=== PATIENT | male | born 2000 | race Caucasian/White ===

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

== ENCOUNTER 2019-01-23 17:01 | Emergency (ER) | payer OTHER ==
[~2019-01-23] VITALS: Ht 180.3 cm; Wt 188.6 kg
[2019-01-23] MEDS ORDERED: CIPROFLOXACIN HCL 250 MG TABLET PO ONE (18:15)
[2019-01-23] MEDS ORDERED: PERTUSS(ACELL),DIPH,TET VAC/PF 0.5 ML VIAL IM ONE (18:15)
[2019-01-23] MEDS ORDERED: BACITRACIN 0.9 GM PACKET OINTMENT TP ONE (18:15)
[2019-01-23] MEDS ORDERED: IBUPROFEN 600 MG TABLET PO ONE (19:00)
[2019-01-23] MEDS ORDERED: ACETAMINOPHEN 500 MG TABLET PO ONE (19:00)
[2019-01-23 19:09] VITALS: BP 144/72
== END 2019-01-23 19:17 | disposition home or self-care (01) ==
LOC: EMS 17:02
DX: S91.332A Puncture wound without foreign body, left foot, initial encounter (principal); W45.0XXA Nail entering through skin, initial encounter; Y93.89 Activity, other specified; Y92.89 Other specified places as the place of occurrence of the external cause; Y99.0 Civilian activity done for income or pay
CPT/HCPCS: 90471; 90715

== ENCOUNTER 2021-06-20 08:20 | Emergency (ER) | payer OTHER ==
[~2021-06-20] VITALS: Ht 180.3 cm; Wt 170.4 kg
[2021-06-20] MEDS ORDERED: ALBUTEROL SULFATE HFA 90 MCG/PUFF 8 GM INHALER IH ONE (08:30)
[2021-06-20 08:43] LABS: COVID AG,FIA SOURCE NASAL SWAB
[2021-06-20 10:07] VITALS: BP 158/98
== END 2021-06-20 10:16 | disposition home or self-care (01) ==
LOC: EMS 08:24
DX: J45.901 Unspecified asthma with (acute) exacerbation (principal); Z20.822 Contact with and (suspected) exposure to COVID-19
CPT/HCPCS: 71045; 94640; 99284; J3535

== ENCOUNTER 2022-03-14 22:43 | Emergency (ER) | payer OTHER ==
[~2022-03-14] VITALS: Ht 177.8 cm; Wt 159.1 kg
[2022-03-14 22:44] VITALS: BP 115/80
== END 2022-03-15 03:44 | disposition left against medical advice (07) ==
LOC: EMS 22:44
DX: J45.909 Unspecified asthma, uncomplicated (principal); Z53.21 Procedure and treatment not carried out due to patient leaving prior to being seen by health care provider

== ENCOUNTER 2022-05-26 22:50 | Emergency (ER) | payer OTHER ==
[~2022-05-26] VITALS: Ht 177.8 cm; Wt 159.0 kg
[2022-05-27] MEDS ORDERED: IPRATROPIUM BROMIDE 0.5 MG/2.5 ML NEB SOLUTION NEB ONE
[2022-05-27] MEDS ORDERED: DEXAMETHASONE 4 MG TABLET PO ONE
[2022-05-27 00:15] LABS: COVID AG,FIA SOURCE NASAL SWAB
[2022-05-27 00:43] LABS: INFLUENZA TYPE A NEGATIVE FOR TYPE A (NEGATIVE); INFLUENZA TYPE B NEGATIVE FOR TYPE B (NEGATIVE)
[2022-05-27] MEDS ORDERED: ALBUTEROL SULFATE 2.5 MG/0.5 ML NEB SOLUTION NEB ONE ×2 (03:00)
[2022-05-27 04:50] VITALS: BP 165/80
== END 2022-05-27 04:59 | disposition left against medical advice (07) ==
LOC: EMS 22:53
DX: J45.901 Unspecified asthma with (acute) exacerbation (principal); R09.02 Hypoxemia; I10 Essential (primary) hypertension; Z20.822 Contact with and (suspected) exposure to COVID-19
CPT/HCPCS: 99285; 71045; 87426; 87804; 94640; J8540; J7613

== ENCOUNTER 2022-06-01 12:55 | Emergency (ER) | payer OTHER ==
[~2022-06-01] VITALS: Ht 177.8 cm; Wt 159.1 kg
[2022-06-01 13:18] LABS: COVID AG,FIA SOURCE NASAL SWAB
[2022-06-01 14:09] LABS: INFLUENZA TYPE A NEGATIVE FOR TYPE A (NEGATIVE); INFLUENZA TYPE B NEGATIVE FOR TYPE B (NEGATIVE)
[2022-06-01] MEDS ORDERED: IPRATROPIUM BROMIDE 0.5 MG/2.5 ML NEB SOLUTION NEB ONE (14:30)
[2022-06-01] MEDS ORDERED: ALBUTEROL SULFATE 2.5 MG/0.5 ML NEB SOLUTION NEB ONE (14:30)
[2022-06-01 15:59] VITALS: BP 120/80
[2022-06-01] MEDS ORDERED: ALBU8HFA IH (15:59)
== END 2022-06-01 16:17 | disposition home or self-care (01) ==
LOC: EMS 12:56
DX: J45.901 Unspecified asthma with (acute) exacerbation (principal); I10 Essential (primary) hypertension; Z20.822 Contact with and (suspected) exposure to COVID-19
CPT/HCPCS: 71045; 87804; 93005; 94640; 99285; J7613

== ENCOUNTER 2023-10-13 10:21 | Emergency (ER) | payer MEDICAID, OTHER ==
[~2023-10-13] VITALS: Ht 177.8 cm; Wt 182.0 kg
[~2023-10-13 10:21] MED LIST: ALBU18HF12 IH
[2023-10-13 11:05] VITALS: TEMP 98.4
[2023-10-13] MEDS: PredniSONE 20 MG TABLET PO ONE (11:39)
[2023-10-13 11:52] VITALS: PULSE 80; RESP 12; O2SAT 99
[2023-10-13] MEDS: ALBUTEROL SULFATE 2.5 MG/0.5 ML NEB SOLUTION NEB ONE ×2 (11:52→12:59)
[2023-10-13] MEDS: IPRATROPIUM BROMIDE 0.5 MG/2.5 ML NEB SOLUTION NEB ONE ×2 (11:52→12:59)
[2023-10-13 12:00] VITALS: PULSE 91; RESP 20; O2SAT 97
[2023-10-13 13:00] VITALS: PULSE 89; RESP 23; O2SAT 93
[2023-10-13] MEDS: ALBUTEROL SULFATE HFA 90 MCG/PUFF 8 GM INHALER IH ONE (13:02)
[2023-10-13 13:03] VITALS: PULSE 89; RESP 20; O2SAT 99
[2023-10-13] MEDS ORDERED: ALBU18HF12 IH (13:26)
[2023-10-13] MEDS ORDERED: PRED-554 PO (13:26)
[2023-10-13 14:20] VITALS: BP 148/79; PULSE 74; RESP 20
== END 2023-10-13 14:37 | disposition home or self-care (01) ==
LOC: EMS 10:21
DX: J45.901 Unspecified asthma with (acute) exacerbation (principal); I10 Essential (primary) hypertension
CPT/HCPCS: 99284; 94640; J7512; J3535

== ENCOUNTER 2024-02-10 16:42 | Emergency (ER) | payer MEDICAID, OTHER ==
[~2024-02-10] VITALS: Ht 177.8 cm; Wt 159.0 kg
[~2024-02-10 16:42] MED LIST changes: +PRED-554 PO
[2024-02-10 17:33] VITALS: TEMP 97.1
[2024-02-10] MEDS: DEXAMETHASONE 4 MG TABLET PO ONE (19:58)
[2024-02-10 21:14] VITALS: PULSE 66; RESP 20; O2SAT 92
[2024-02-10] MEDS: IPRATROPIUM BROMIDE 0.5 MG/2.5 ML NEB SOLUTION NEB ONE (21:16)
[2024-02-10] MEDS: ALBUTEROL SULFATE 2.5 MG/0.5 ML NEB SOLUTION NEB ONE (21:16)
[2024-02-10 21:20] VITALS: PULSE 66; RESP 20; O2SAT 92
[2024-02-10 21:25] VITALS: PULSE 70; RESP 20; O2SAT 98
[2024-02-10] MEDS ORDERED: ALBU18HF12 IH (21:55)
[2024-02-10 22:31] VITALS: BP 132/92; PULSE 72; RESP 20; O2SAT 99
== END 2024-02-10 23:14 | disposition home or self-care (01) ==
LOC: EMS 16:42
DX: J45.909 Unspecified asthma, uncomplicated (principal); I10 Essential (primary) hypertension
CPT/HCPCS: 99285; 94640; J8540; 94060; J7613; Z7502

== ENCOUNTER 2024-03-06 09:11 | Emergency (ER) | payer OTHER ==
[~2024-03-06] VITALS: Ht 177.8 cm; Wt 168.2 kg
[~2024-03-06 09:11] MED LIST changes: -PRED-554 PO
[2024-03-06 09:20] VITALS: TEMP 98.5
[2024-03-06] MEDS: LIDOCAINE 1% 10 ML VIAL SQ ONE (09:51)
[2024-03-06] MEDS: CEPHALEXIN MONOHYDRATE 500 MG CAPSULE PO ONE (09:51)
[2024-03-06] MEDS: BACITRACIN 0.9 GM PACKET OINTMENT TP ONE (09:51)
[2024-03-06] MEDS: SULFAMETHOX/TRIMETH DS 800-160 MG/TABLET PO ONE (09:51)
[2024-03-06] MEDS ORDERED: SULF-261 PO (10:32)
[2024-03-06] MEDS ORDERED: CEPH-558 PO (10:32)
[2024-03-06 11:12] VITALS: BP 131/79; PULSE 78; RESP 20; O2SAT 98
== END 2024-03-06 11:14 | disposition home or self-care (01) ==
LOC: EMS 09:11
DX: L05.01 Pilonidal cyst with abscess (principal); I10 Essential (primary) hypertension; J45.909 Unspecified asthma, uncomplicated
CPT/HCPCS: 10080; 99283; J3490; 10060

== ENCOUNTER 2024-04-02 15:25 | Emergency (ER) | payer SELFPAY ==
[~2024-04-02] VITALS: Ht 177.8 cm; Wt 168.0 kg
[~2024-04-02 15:25] MED LIST changes: +CEPH-558 PO; +SULF-261 PO
[2024-04-02 15:32] VITALS: TEMP 98.3
[2024-04-02] MEDS ORDERED: ASPIRIN 81 MG CHEWABLE TABLET PO ONE (16:00)
[2024-04-02] MEDS ORDERED: HEPARIN SODIUM,PORCINE 5,000 UNITS/ML VIAL IVP ONE (16:00)
[2024-04-02] MEDS ORDERED: ATORVASTATIN CALCIUM 40 MG TABLET PO ONE (16:00)
[2024-04-02] MEDS ORDERED: ALBU18HF12 IH (16:39)
[2024-04-02] MEDS ORDERED: METH4TAB3 PO (16:39)
[2024-04-02] MEDS ORDERED: AZIT250T9 PO (16:39)
[2024-04-02] MEDS: DEXAMETHASONE SOD PHOS 4 MG/ML 5 ML VIAL IM ONE (17:08)
[2024-04-02] MEDS ORDERED: 0.9% SODIUM CHLORIDE 5 ML NEB SOLUTION NEB ONE (17:36)
[2024-04-02] MEDS: ALBUTEROL SULFATE 2.5 MG/0.5 ML NEB SOLUTION NEB ONE (17:38)
[2024-04-02 17:39] VITALS: PULSE 84; RESP 16; O2SAT 96
[2024-04-02 17:41] VITALS: PULSE 84; RESP 16; O2SAT 96
[2024-04-02 17:52] VITALS: PULSE 80; RESP 18; O2SAT 100
[2024-04-02 17:57] VITALS: BP 161/87; PULSE 89; RESP 18; O2SAT 96
== END 2024-04-02 18:16 | disposition home or self-care (01) ==
LOC: EMS 15:25
DX: J45.901 Unspecified asthma with (acute) exacerbation (principal); J98.4 Other disorders of lung; R05.8 Other specified cough; I10 Essential (primary) hypertension
CPT/HCPCS: 99283; 71045; 94640; 96372; J1100; J7613